=== PATIENT | male | born 1925 | race Caucasian/White ===

== ENCOUNTER 2016-07-05 02:56 | Emergency (ER) | payer MEDICARE ==
[2016-09-09] MEDS ORDERED: BAYER CHEWABLE81 MG PO (22:17)
[2016-09-09] MEDS ORDERED: VITAMIN D-32000 UNIT PO (22:17)
[2016-09-09] MEDS ORDERED: SURFAK240 MG PO (22:25)
[2016-09-09] MEDS ORDERED: PROSCAR 5 MG TAB5 MG PO (22:36)
[2016-09-09] MEDS ORDERED: ERYTHROMYCIN OP1 GM OP (22:36)
[2016-09-09] MEDS ORDERED: FLOMAX0.4 MG PO (22:37)
[2016-09-09] MEDS ORDERED: ZOCOR20 MG PO (22:37)
[2016-09-09] MEDS ORDERED: COUMADIN 2.5MG2.5 MG PO (22:40)
[2016-09-09] MEDS ORDERED: COUMADIN2.5 MG PO ×2 (22:41→22:42)
[2016-09-10] MEDS ORDERED: LOPRESSOR 25 MG25 MG PO (22:37)
[2016-09-14] MEDS ORDERED: METOPROLOL TART25 MG PO (17:11)
[2016-09-14] MEDS ORDERED: VITAMIN D2000 UNI1 PO (17:13)
== END 2016-07-05 08:55 | disposition home or self-care (01) ==
LOC: ER1 02:56
DX: K59.00 Constipation, unspecified (principal); I48.91 Unspecified atrial fibrillation; I10 Essential (primary) hypertension; E78.5 Hyperlipidemia, unspecified; Z79.01 Long term (current) use of anticoagulants; Z79.899 Other long term (current) drug therapy
CPT/HCPCS: 74022; 99283